=== PATIENT | male | born 1985 | race Caucasian/White ===

== ENCOUNTER 2017-09-27 15:24 | Emergency (ER) | payer MEDICAID ==
[~2017-09-27] VITALS: Ht 180.3 cm; Wt 165.7 kg
[2017-09-27 15:36] VITALS: BP 133/109
[2017-09-27] MEDS ORDERED: AZITHROMYCIN 500 MG in DEXTROSE 5% 250 ML IV ONE (16:45)
[2017-09-27] MEDS ORDERED: ALBUTEROL 0.083% 2.5 MG/3 ML NEBU INH ONE (16:45)
[2017-09-27] MEDS ORDERED: cefTRIAXone 2,000 MG in DEXTROSE 5% 100 ML IV ONE (16:45)
[2017-09-27] MEDS ORDERED: DEXAMETHASONE 10 MG/ML VIAL IVP ONE (17:10)
[2017-09-27] MEDS ORDERED: PROMETHAZINE 25 MG/ML VIAL IM ONE (17:10)
[2017-09-27] MEDS ORDERED: cefTRIAXone 1,000 MG VIAL ONE ×2 (17:24→17:30)
[2017-09-27 17:28] LABS: BASOPHILS # (AUTO) 0.1 K/uL (0.00-0.22); BASOPHILS % (AUTO) 0.4 % (0.0-2.0); EOSINOPHILS # (AUTO) 0.1 K/uL (0-0.4); EOSINOPHILS % (AUTO) 0.4 % (0.0-4.0); HEMATOCRIT 42.4 % (36-52); HEMOGLOBIN 13.6 g/dL (12.0-18.0); LYMPHOCYTES # (AUTO) 1.8 K/uL (2.0-11.5); LYMPHOCYTES % (AUTO) 13.5 % (20.5-51.1); MEAN CORPUSCULAR HEMOGLOBIN 23 pg (27-31); MEAN CORPUSCULAR HGB CONC 32 g/dL (33-37); MEAN CORPUSCULAR VOLUME 72.8 fL (80-94); MONOCYTES # (AUTO) 0.8 K/uL (0.8-1.0); NEUTROPHILS # (AUTO) 10.8 K/uL (1.8-7.7); NEUTROPHILS % (AUTO) 79.7 % (42.2-75.2); PLATELET COUNT (AUTO) 269 K/uL (140-450); RED BLOOD CELL COUNT(AUTO) 5.83 MIL/uL (4.20-6.10); RED CELL DISTRIBUTION WIDTH 16.7 % (11.6-13.7); WHITE BLOOD COUNT (AUTO) 13.6 K/uL (4.8-10.8)
[2017-09-27 17:40] LABS: PROTHROMBIN TIME 11.4 secs (10.8-13.4)
[2017-09-27 17:45] LABS: ALBUMIN 3.5 g/dL (3.4-5.0); TOTAL BILIRUBIN 0.5 mg/dL (0.0-1.0)
[2017-09-27 17:53] LABS: D-DIMER < 100 ng/ml (0-400)
[2017-09-27] MEDS ORDERED: AZITHROMYCIN 500 MG INJ VIAL IV ONE (19:18)
[2017-09-27 20:35] VITALS: BP 129/81
== END 2017-09-27 20:35 | disposition home or self-care (01) ==
LOC: MED 15:24
DX: J32.9 Chronic sinusitis, unspecified (principal); J45.909 Unspecified asthma, uncomplicated; F17.210 Nicotine dependence, cigarettes, uncomplicated
CPT/HCPCS: 36415; 36600; 71045; 80053; 82550; 82803; 84484; 85025; 85379; 85610; 85730; 86886; 86900; 86901; 87040; 93005; 94640; 96365; 96367; 96375; 99285; J0456; J0696; J1100; J7613; Q0092; J2550

== ENCOUNTER 2018-05-31 21:19 | Emergency (ER) | payer SELFPAY ==
[~2018-05-31] VITALS: Ht 180.3 cm; Wt 163.3 kg
[2018-05-31 21:22] VITALS: BP 140/89
[2018-05-31 22:47] VITALS: BP 120/68
== END 2018-05-31 22:42 | disposition home or self-care (01) ==
LOC: MED 21:19
DX: J06.9 Acute upper respiratory infection, unspecified (principal)
CPT/HCPCS: 99283

== ENCOUNTER → 2022-03-29 | Emergency (ER) | payer OTHER ==
[~2022-03-29] VITALS: Ht 180.3 cm; Wt 161.5 kg
[~2022-03-29] MED LIST: PRED20TA5 PO
[2022-03-29 14:57] VITALS: BP 156/104
--- NOTE | 2022-03-29 15:00 | NUR ---
36 y/o male, c/o right ankle swelling and pain for 1 week, pt was seen at urgent care and given naproxen, states pain has improved, but now has worsening new pain on bl wrists, worse on left side. pmh: dm2 nka med: ibuprofen, naproxen
[2022-03-29 16:02] VITALS: BP 156/104
--- NOTE | 2022-03-29 16:02 | NUR ---
Patient discharged with v/s stable. Written and verbal after care instructions given and explained. Patient alert, oriented and verbalized understanding of instructions. Ambulatory with steady gait. All questions addressed prior to discharge. ID band removed. Patient advised to follow up with PMD. Rx of prednisone (sent) given. Patient educated on indication of medication including possible reaction and side effects. Opportunity to ask questions provided and answered.
== END | disposition home or self-care (01) ==
LOC: MED 14:48
DX: M25.532 Pain in left wrist (principal); M25.531 Pain in right wrist
CPT/HCPCS: 99283